=== PATIENT | male | born 1985 | race Caucasian/White ===

== ENCOUNTER 2018-05-14 17:30 | Emergency (ER) | payer MEDICAID ==
[2018-05-14 17:36] VITALS: BP 136/84
--- NOTE | 2018-05-14 17:49 | EDPHY ---
H & P Stated Complaint: cough, yellow mucous, fever, cough starting yesterday Time Seen by Provider: 05/14/18 17:46 HPI/ROS: HPI: This is a 32-year-old male who presents with Chief Complaint: cough, yellow mucous, fever, cough starting yesterday Location: Chest Quality: Nonproductive cough Duration: Less than 24 hr Signs and Symptoms: no fever, no nausea, no vomiting, no diarrhea, no urinary symptoms, no chest pain, no shortness of breath, no wheezing, + nonproductive cough, + sore throat, no neck stiffness, no joint pain, no swollen glands, no ear pain, no rash Timing: Acute, constant Severity: Mild Context: Patient is generally healthy, nonsmoker, presents with less than 24 hr history of feeling fatigue with body aches and nonproductive cough. He reports that he is a nonsmoker but does have a history of asthma as a child. Does not have an inhaler that he regular uses. Denies any shortness of breath, wheezing, chest pain, neck stiffness. Patient also complains of a sore throat. He did not go to work today. He did not receive his influenza vaccine. Patient is eating a cheeseburger and Greek fries when I enter the examining room. He asked if he can have some juice with his dinner. Modifying Factors: Has not tried any [id number] cold remedies. Comment: ROS: A comprehensive 10 system review of systems is otherwise negative aside from elements mentioned in the history of present illness. MEDICAL/SURGICAL/SOCIAL HISTORY: Medical history: Asthma. Does not take any regular medications. Surgical history: Left shoulder surgery Social history: Nonsmoker. Marijuana user. Family history noncontributory. CONSTITUTIONAL: Nontoxic-appearing extremely well-appearing adult white male, awake and alert, no obvious distress HEENT: Atraumatic and normocephalic, PERRL, EOMI. Nares patent; no rhinorrhea; no nasal mucosal edema. Tympanic membranes clear. Oropharynx clear, no tonsillar hypertrophy, uvula midline, no exudate and moist pink mucosa. Airway patent. No lymphadenopathy. No meningismus. Cardiovascular: Normal S1/S2, regular rate, regular rhythm, without murmur rub or gallop. PULMONARY/CHEST: Symmetrical and nontender. Clear to auscultation bilaterally. Good air movement. No accessory muscle usage. ABDOMEN: Soft, nondistended, nontender, no rebound, no guarding, no peritoneal signs, no masses or organomegaly. No CVAT. EXTREMITIES: 2/2 pulses, strength 5/5, no deformities, no clubbing, no cyanosis or edema. NEUROLOGICAL: no focal neuro deficits. GCS 15. SKIN: Warm and dry, no erythema. no rash. Good capillary refill. Source: Patient Exam Limitations: No limitations - Personal History Current Tetanus/Diphtheria Vaccine: Yes - Medical/Surgical History Hx Asthma: Yes Hx Chronic Respiratory Disease: No Hx Diabetes: No Hx Cardiac Disease: No Hx Renal Disease: No Hx Cirrhosis: No Hx Alcoholism: No Hx HIV/AIDS: No Hx Splenectomy or Spleen Trauma: No Other PMH: left shoulder surgery, asthma - Social History Smoking Status: Never smoked Constitutional: Initial Vital Signs Temperature (C) 36.6 C 05/14/18 17:34 Heart Rate 76 05/14/18 17:34 Respiratory Rate 16 05/14/18 17:34 Blood Pressure 136/84 H 05/14/18 17:34 O2 Sat (%) 97 05/14/18 17:34 O2 Delivery Mode Room Air Allergies/Adverse Reactions: No Known Allergies Allergy (Unverified 05/14/18 17:32) Home Medications: Medication Instructions Recorded Albuterol 05/14/18 Benzonatate [Tessalon Pearles (RX)] 100 mg PO Q6 PRN #15 cap 05/14/18 Flexeril 10 MG (*) 05/14/18 HYDROcodone/HOMATROPINE HYCODA 1 tsp PO Q4-6PRN PRN #120 ml 05/14/18 [Hycodan Syrup (*)] Medical Decision Making ED Course/Re-evaluation: Vital signs reviewed and stable upon arrival. No hypoxia/respiratory distress. Influenza swab sent while in triage. Patient's lung exam is benign and there is no indication for chest x-ray. Patient will be given Tessalon Perles and cough syrup and advised supportive care. No signs of otitis media/sinusitis/meningitis/tonsillar abscess He is not a Tamiflu candidate. This patient was seen under the supervision of my secondary supervising physician. I evaluated care for this patient independently. Discussed this patient with Dr. Townsend who did not see the patient. Addendum at 1823: Influenza negative. Differential Diagnosis: Differential diagnosis includes but is not limited to influenza, upper respiratory infection, bronchitis, pneumonia, viral syndrome, sinusitis, strep throat. - Data Points Laboratory Results: 05/14/18 17:23 Nasal Influenza A PCR NEGATIVE FOR FLU A (NEGATIVE) Nasal Influenza B PCR NEGATIVE FOR FLU B (NEGATIVE) Departure - Departure Disposition: Home, Routine, Self-Care Clinical Impression: Influenza-like illness Condition: Good Instructions: Influenza (ED) Additional Instructions: Rest as much as possible until you are feeling better. Consume a minimum of 8-10 glasses of water or electrolyte fluid replacement drinks that include Gatorade, Powerade, Pedialyte. Eat a bland diet for the next 48 hours and then slowly advance as tolerated. Take Tessalon Perles every 6 hr as needed for moderate cough. Take cough syrup every 6 hr as needed for severe cough not relieved by Tessalon Perles. When to Use Tamiflu For Influenza Tamiflu is not a cure. It may take 1-2 days off you illness. The current recommendations for Tamiflu from The Center for Disease Control (CDC ) include giving Tamiflu to: 1 Children less than 5 years of age. 2 People with respiratory problems such as COPD or Asthma. 3 People with heart problems and those with high blood pressure. 4 People with kidney and liver problems. 5 People with weakened immune systems from known disease. 6 People who are on medicine that weakens their immune system. 7 Women who are . 8 People over the age of 65 and folks from nursing homes. 9 People who will be hospitalized. 10 People at risk (as above) who have been closely exposed to someone with confirmed influenza. These recommendations exist to avoid shortages of the medication and to avoid resistance to the medication. Further information is available on the CDC website: www.cdc.gov/H3O2JLQ Please wash your hands frequently, cover your cough, and stay home until you are symptom free. Referrals: [facility],. [Clinic] - As per Instructions Stand Alone Forms: Work Excuse Prescriptions: Benzonatate [Tessalon Pearles (RX)] 100 mg PO Q6 PRN #15 cap PRN Reason: Cough, Moderate HYDROcodone/HOMATROPINE HYCODA [Hycodan Syrup (*)] 1 tsp PO Q4-6PRN PRN #120 ml PRN Reason: Cough, Severe
== END 2018-05-14 18:04 | disposition home or self-care (01) ==
DX: R05 Cough (principal); R50.9 Fever, unspecified

== ENCOUNTER 2018-09-09 11:38 | Emergency (ER) | payer MEDICAID ==
[2018-09-09] MEDS ORDERED: DEXAMETHASONE 10 MG/ML VIAL IVP ONE (14:28)
== END 2018-09-09 15:02 | disposition home or self-care (01) ==
DX: J03.90 Acute tonsillitis, unspecified (principal); J45.909 Unspecified asthma, uncomplicated